=== PATIENT | male | born 1985 | race Caucasian/White ===

== ENCOUNTER → 2016-06-28 | Outpatient (CLI) | payer OTHER ==
--- NOTE | ~2016-06-28 | CT55 ---
[facility] A Service of [facility] & [facility] RADIOLOGY TEXT RESULTS PATIENT: APURVA ROTHMAN LOCATION: [facility] : [birth year] UNIT #: [id number] AGE: [address]: Kianna Quiroz MD SEX: M ORDER DR: [id number] [facility] [address] [place], [place] [address] [id number] O MR#: [id number] [facility] #: [id number] NAME: APURVA ROTHMAN : 1985 SEX: M STUDY DATE/TIME: 06/28/2016 09:46 UNIT: [facility] ROOM: STUDY DESCRIPTION: CT Chest W Con Attending Physician: Kianna Quiroz M.D. Referring Physician: Kianna Quiroz M.D. Ordering Physician: Kianna Quiroz M.D. Primary Care Physician: Yoni Garcia MEDICAL IMAGING REPORT This report is preliminary unless electronic signature is present EXAM CT chest with contrast, 06/28/2016 09:46 hours HISTORY 30-year-old man with history of right testicular cancer, 1-1/2 years ago with history of right orchiectomy and chemotherapy for followup. No current complaints. Observation for suspected malignant neoplasm. COMPARISON 02/27/[address] images were obtained from the thoracic inlet through the adrenal glands. Sagittal and coronal reconstructions were performed. Contrast was Isovue-370, 100 mL IV. Total exam DLP PA for the chest, abdomen and pelvis exam today is 1,337 mGy-cm. This CT exam was performed with one or more of the following radiation dose reduction techniques: automatic exposure control, adjustment of mA and/or kV according to patient size, and iterative reconstruction. FINDINGS Images through the thoracic inlet demonstrate no thyroid lesion or adenopathy. Images through the chest demonstrate a slight increase in reticular change in the anterior mediastinum which likely represents mild increase in thymic tissue likely post chemotherapy thymic rebound. This does not appear masslike or suspicious. There is no mediastinal or hilar adenopathy. The aorta, cardiac chambers and pericardium are normal. There are 2 very small subpleural nodules adjacent to each other measuring approximately 3.0 mm at the right lung base with additional 2.0 mm nodule STS. [facility] A Service of [facility] & [facility] RADIOLOGY TEXT RESULTS PATIENT: APURVA ROTHMAN LOCATION: [facility] : [birth year] UNIT #: [id number] AGE: [address]: Kianna Quiroz MD SEX: M ORDER DR: posteriorly at the same level and more inferiorly there is a 3.0-4.0 mm nodule lateral to the dome of the diaphragm. These are unchanged from the outside PET/CT from [facility] dated 10/29/2015 and are likely benign. There were not PET avid. There are no new or developing densities. No effusions. IMPRESSION 1. There is no definite evidence of metastatic disease in the chest. There are 4 micronodules in the right lower lobe as described above which are unchanged dating back to the PET/CT of 10/29/2015. There are no new or developing densities. 2. There is slight increase in reticular change in the anterior mediastinal fat most likely representing mild thymic stimulation perhaps post chemotherapy thymic rebound. This is linear reticular and does not appear mass-like. Dictated by... Angela Snowden M.D. THIS IS AN ELECTRONICALLY VERIFIED REPORT Angela Snowden M.D. at 06/28/2016 2:28 PM Debo TD: 06/28/2016 11:59 JOB #: [id number] MEDICAL IMAGING REPORT Page 1 of 1 COPY
--- NOTE | ~2016-06-28 | CT2 ---
[facility] A Service of [facility] & [facility] RADIOLOGY TEXT RESULTS PATIENT: APURVA ROTHMAN [facility] 85 UNIT #: [id number] AGE: [address]: Kianna Quiroz MD SEX: M ORDER DR: [id number] [facility] [address] [place], [place] [address] [id number] O MR#: [id number] [facility] #: [id number] NAME: APURVA ROTHMAN : 1985 SEX: M STUDY DATE/TIME: 06/28/2016 09:46 UNIT: [facility] ROOM: STUDY DESCRIPTION: CT Abd and Pelv W Cont Attending Physician: Kianna Quiroz M.D. Referring Physician: Kianna Quiroz M.D. Ordering Physician: Kianna Quiroz M.D. Primary Care Physician: Yoni Garcia MEDICAL IMAGING REPORT This report is preliminary unless electronic signature is present EXAM CT abdomen and pelvis with contrast 06/28/2016 0946 hours HISTORY 30-year-old man with history of testicular carcinoma status post right orchiectomy and chemotherapy for followup. No acute complaints today. Observation for suspected malignant neoplasm. TECHNIQUE Dynamic helical CT images were obtained from the lung bases through the pubic symphysis with intravenous contrast. Sagittal and coronal reconstructions were performed. Contrast was Isovue-370 100 mL IV. Total exam DLP for the chest, abdomen and pelvis exam today is 1337 mGy-cm. This CT examination was performed with one or more of the following radiation dose reduction techniques: automatic exposure control, adjustment of mA and/or kV according to patient size, and iterative reconstruction. FINDINGS Images through the abdomen demonstrate no lesions in the liver or spleen. The pancreas, gallbladder, bile ducts, adrenal glands and kidneys are normal. The abdominal aorta is normal in caliber. There has been decrease of the margins of the distal abdominal aorta at the level of the origin of the inferior mesenteric artery with example measurement 5 mm previously 10 mm. There is no new or developing lymphadenopathy. There is no ascites. The stomach and small bowel are normal. There are no colonic lesions. CT pelvis demonstrates a normal appearance to the bladder, seminal vesicles and prostate. There is right orchiectomy change. There is no inguinal adenopathy. No hernias are seen. [facility] A Service of [facility] & [facility] RADIOLOGY TEXT RESULTS PATIENT: APURVA ROTHMAN LOCATION: [facility] : 85 UNIT #: [id number] AGE: [address]: Kianna Quiroz MD SEX: M ORDER DR: IMPRESSION 1. There is interval decrease in residual soft tissue density around the distal abdominal aorta with example measurement 5 mm previously 10 mm. 2. There is no pathologic adenopathy or evidence of metastatic disease in the abdomen or pelvis. Dictated by... Angela Snowden M.D. THIS IS AN ELECTRONICALLY VERIFIED REPORT Angela Snowden M.D. at 06/28/2016 2:28 PM MIKAYLA/dina TD: 06/28/2016 12:21 JOB #: [id number] MEDICAL IMAGING REPORT Page 1 of 1 COPY
== END | disposition home or self-care (01) ==
LOC: CCAT 09:14
DX: Z08 Encounter for follow-up examination after completed treatment for malignant neoplasm (principal); R91.8 Other nonspecific abnormal finding of lung field; R93.8 Abnormal findings on diagnostic imaging of other specified body structures; Z85.47 Personal history of malignant neoplasm of testis; Z92.21 Personal history of antineoplastic chemotherapy; Z90.79 Acquired absence of other genital organ(s)
CPT/HCPCS: 71260; 74177; Q9967